=== PATIENT | male | born 2000 | race African-American/Black ===

== ENCOUNTER 2021-10-31 02:10 | Emergency (ER) | payer OTHER ==
[~2021-10-31] VITALS: Ht 172.7 cm; Wt 64.9 kg
[2021-10-31] MEDS ORDERED: ONDANSETRON HCL 4 MG/2 ML VIAL IV ONE (03:45)
[2021-10-31] MEDS ORDERED: HYDROmorphone HCL 2 MG/ML VL IV ONE ×3 (03:45→10:15)
[2021-10-31] MEDS ORDERED: SODIUM CHLORIDE 0.9% 1,000 ML IV ONE ×2 (07:15)
[2021-10-31 07:40] LABS: Basophils # (auto) 0.1 10 ^3/uL (0-0.2); Basophils % (auto) 0.5 % (0.0-2.0); Eosinophils # (auto) 0 10 ^3/uL (0-0.8); Eosinophils % (auto) 0.1 % (0.0-7.0); Hematocrit 40.7 % (41.0-53.0); Hemoglobin 13.7 g/dL (13.5-17.5); Lymphocytes # (auto) 1.3 10 ^3/uL (0.4-5.4); Lymphocytes % (auto) 10.7 % (10.0-50.0); Mean Corpuscular Hemoglobin 30.4 pg (28.0-32.0); Mean Corpuscular Hgb Conc. 33.8 g/dL (32.0-36.0); Mean Corpuscular Volume 90.2 fL (80.0-100.0); Neutrophils # (auto) 9.8 10 ^3/uL (1.6-8.6); Neutrophils % (auto) 80.7 % (37.0-80.0); Red Blood Cells 4.51 10^6/uL (4.5-5.90); Red Cell Distribution Width 12.7 % (11.8-14.3); White Blood Cell 12.1 10^3/uL (4.4-10.8)
[2021-10-31 07:50] LABS: Albumin 4.2 g/dL (3.4-5.0); Calcium 8.7 mg/dL (8.5-10.1); Potassium 3.8 mmol/L (3.5-5.1)
[2021-10-31 07:53] LABS: Bilirubin, Total 0.4 mg/dL (0.2-1.0); Total Protein 7.3 g/dL (6.4-8.2)
[2021-10-31 07:56] LABS: INR 1.07 (0.9-1.15); Partial Thromboplastin Time 24.7 sec (23.6-33.0)
[2021-10-31] MEDS ORDERED: HYDROmorphone HCL 2 MG/ML VL ONE (08:00)
[2021-10-31] MEDS ORDERED: HYDROmorphone HCL 2 MG/ML VL IM ONE (08:15)
[2021-10-31 10:06] VITALS: BP 134/83
== END 2021-10-31 07:15 | disposition short-term general hospital (02) ==
LOC: EDBD 02:10 → ER 02:10
DX: S42.332A Displaced oblique fracture of shaft of humerus, left arm, initial encounter for closed fracture (principal); M79.10 Myalgia, unspecified site; V48.5XXA Car driver injured in noncollision transport accident in traffic accident, initial encounter; Y93.89 Activity, other specified; Y92.89 Other specified places as the place of occurrence of the external cause; Y99.8 Other external cause status
CPT/HCPCS: 29105; 36415; 70450; 71045; 71250; 72125; 73030; 73060; 74176; 80053; 85025; 85610; 85730; 87426; 96361; 96374; 96375; 96376; 99285; J1170; J2405; J7030